=== PATIENT | female | born 1985 | race Caucasian/White ===

== ENCOUNTER 2025-07-08 04:57 | Emergency (ER) | payer SELFPAY ==
[2025-07-08] VITALS (8 sets, daily range): BP systolic 123–141; BP diastolic 74–95; BMI 25.0
[2025-07-08] MEDS: ATIVAN 1 MG IV (05:12)
--- NOTE | 2025-07-08 05:20 | ED.GENMED ---
History of Present Illness
<Lizette Brooks PA-C - Last Filed: 07/08/25 07:58>
General
Chief Complaint: Fainting Sensation
Source: patient
Exam Limitations: none
Time Seen by Provider: 07/08/25 05:07
Nursing documentation reviewed up to this point in time: agreed with
History of Present Illness
History of Present Illness:
40-year-old male to female transgender patient with no reported past medical history presents to the ER today with concerns of a potential syncopal episode. 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
up and collapsed to the ground. She reports that prior to the fall, she felt dizzy and suddenly collapsed. She subsequently called EMS. Of note, she has been having generalized URI symptoms for the past few days as noted frontal headache for the
past few days. She has not had any vomiting. No nausea. She reports that she has been taking NyQuil for the headaches and URI symptoms. She reports that she took a dose of NyQuil before bed this evening. She denies chest pain or shortness of
breath. She has never had a syncopal episode before.
Review of Systems
<Lizette Brooks PA-C - Last Filed: 07/08/25 07:58>
Review of Systems
All Other Systems: ROS reviewed and negative except as documented in HPI and ROS
Phy Exam
<Lizette Brooks PA-C - Last Filed: 07/08/25 07:58>
Physical Exam
Physical Exam:
General: Patient is well appearing and in no acute distress; non-toxic
Skin: Warm and dry, no rashes or lesions
Head: Normocephalic, atraumatic
Eyes: Sclera non-icteric. EOMs intact.
Cardiac: Regular rate and rhythm, no murmur
Pulm: Normal respiratory effort, no wheezes, rales, or rhonchi
Abdomen: No abdominal tenderness to palpation
Neuro: CN II-XII intact, no focal neurologic deficits.
Later in the ER, patient developed tonic clonic seizure
Repeat neuroexam at 7:14 AM revealed NIH of
Psychiatric: Appropriate mood and affect.
NIH Stroke Score
Level of Consciousness: 0 - Alert
LOC questions: 0-Answers both correctly
LOC Commands: 0-Performs both correctly
Best Gaze: 0-Normal
Visual Palumbo: 0=Normal, no visual loss
Facial palsy: 0=Normal, symmetrical
Motor - Right Arm: 2=Partial vs. gravity
Motor - Left Arm: 0=No drift 10 seconds
Motor - Right Le-None vs. gravity
Motor - Left Le-No drift 5 seconds
Limb Ataxia: 0-Absent
Sensation: 0-Normal
Best Language: 0-No aphasia
Dysarthria: 0-Normal
Extinction and Inattention: 0-No abnormality
Total Score:: 5
Scores
<Lizette Brooks PA-C - Last Filed: 07/08/25 07:58>
NIH Stroke Score
Level of Consciousness: 0 - Alert
LOC Questions: 0-Answers both correctly
LOC Commands: 0-Performs both correctly
Best Horizontal Gaze: 0-Normal
Visual Palumbo: 0=Normal, no visual loss
Facial Palsy: 0=Normal, symmetrical
Motor - Right Arm: 2=Partial vs. gravity
Motor - Left Arm: 0=No drift 10 seconds
Motor - Right Le-None vs. gravity
Motor - Left Le-No drift 5 seconds
Limb Ataxia: 0-Absent
Sensation: 0-Normal
Best Language: 0-No aphasia
Dysarthria: 0-Normal
Extinction and Inattention: 0-No abnormality
NIH Total Score:: 5
Course
<Lizette Brooks PA-C - Last Filed: 07/08/25 07:58>
Orders/Labs/Results
Orders:
Orders
07/08/25 05:08
Electrocardiogram (*1) Urgent
Reason for Study: Other
Other Reason for Exam: syncope
EKG- Treatment ONCE
Lorazepam [Ativan] 2 mg IV NOW STA
07/08/25 05:14
Add On- LAB Urgent
Tests Added?: cpk
07/08/25 05:20
Acetaminophen Urgent
Comment: ADD ON
Alcohol Urgent
B-Hydroxybutyrate Urgent
COVID-19 Antigen Urgent
Source: Nasal Swab
Complete Blood Count/With Diff Urgent
Comprehensive Metabolic Panel Urgent
Creatine Phosphokinase Urgent
Salicylate Urgent
Comment: ADD ON
Influenza A+B Rapid Molecular Urgent
[facility] Source: Nasal Swab
Specimen Description:
07/08/25 05:28
Add On- LAB Urgent
Tests Added?: tylenol, salicyllate
07/08/25 05:31
Lactic Acid Urgent
Venous Blood Gas Urgent
%Oxygen/Room Air: 98
0.9% Sodium Chloride 1000 ml [Nss] 2,000 ml IV BOLUS
07/08/25 05:57
CT Head W/wo Iv Contrast Urgent
Reason For Exam: new seizure, possible head trauma
07/08/25 06:03
Urinalysis Reflex To Culture Urgent
Date Specimen was Collected: 07/08/25
Time Specimen was Collected: 05:25
Urine Drug Abuse Screen Urgent
Date Specimen was Collected: 07/08/25
Time Specimen was Collected: 05:25
Urine Microscopic Reflex Cult Urgent
Lorazepam [Ativan] 2 mg .ROUTE .STK-MED ONE
07/08/25 06:12
Levetiracetam Injectable [Keppra] 2,000 mg IV NOW STA
07/08/25 06:24
CR Chest Portable - 1 View Urgent
Comment:
Reason For Exam: SOB
Reason Study Needs to be Portable: Patient Unstable
07/08/25 06:46
Basic Metabolic Panel Urgent
pH - Venous Urgent
Abnormal Lab Results
07/08/25 07/08/25 07/08/25
05:18 05:20 05:31
WBC 15.9 H 10^3/uL
(4.8-10.8)
Hct 47.6 H %
(37.0-47.0)
MCHC 32.8 L g/dL
(33.0-37.0)
Abs Immat Gran (auto) 0.1 H 10^3/uL
(0-0.05)
Absolute Neuts (auto) 9.3 H 10^3/uL
(1.4-6.5)
Absolute Lymphs (auto) 5.3 H 10^3/uL
(1.2-3.4)
Absolute Monos (auto) 1.0 H 10^3/uL
(0.1-0.6)
Immature Gran % 0.7 H %
(0-0.5)
VBG pH 6.97 L*
(7.32-7.43)
VBG pO2 78 H mmHg
(30-50)
VBG HCO3 8.3 L mmol/L
(22-27)
Sodium
Carbon Dioxide 21 L mmol/L
(22-30)
Glucose 325 H mg/dl
(70-99)
Lactic Acid 21.6 H* mmol/L
(0.7-2.0)
Calcium
Total Protein 8.5 H g/dl
(6.3-8.2)
Urine Ketones
Ur Occult Blood Reflex
Urine Glucose
Urine Albumin (Reflex)
Salicylates < 1.0 L mg/dl
(2.0-20.0)
Acetaminophen < 10 L ug/ml
(10-30)
POC Glucose 322 H mg/dl
(70-99)
07/08/25 07/08/25
06:03 06:46
WBC
Hct
MCHC
Abs Immat Gran (auto)
Absolute Neuts (auto)
Absolute Lymphs (auto)
Absolute Monos (auto)
Immature Gran %
VBG pH
VBG pO2
VBG HCO3
Sodium 133 L mmol/L
(135-145)
Carbon Dioxide 16 L mmol/L
(22-30)
Glucose 329 H mg/dl
(70-99)
Lactic Acid
Calcium 7.8 L D mg/dl
(8.4-10.2)
Total Protein
Urine Ketones 1+ A
(Negative)
Ur Occult Blood Reflex 2+ A
(Negative)
Urine Glucose 4+ A
(Negative)
Urine Albumin (Reflex) 2+ A
(Neg - Trace)
Salicylates
Acetaminophen
POC Glucose
07/08/25 05:20
07/08/25 06:46
Vital Signs
Initial and Last Documented VS:
Initial Vital Signs
Temp Pulse Resp BP Pulse Ox
98.0 F 94 15 133/89 100
07/08/25 04:59 07/08/25 04:59 07/08/25 04:59 07/08/25 04:59 07/08/25 04:59
Last Documented Vital Signs
Temp Pulse Resp BP Pulse Ox
98.0 F 103 20 134/93 98
07/08/25 04:59 07/08/25 06:30 07/08/25 06:30 07/08/25 06:12 07/08/25 06:30
<Paola Santos, DO - Last Filed: 07/08/25 06:43>
Orders/Labs/Results
Orders:
Orders
07/08/25 05:08
Electrocardiogram (*1) Urgent
Reason for Study: Other
Other Reason for Exam: syncope
EKG- Treatment ONCE
Lorazepam [Ativan] 2 mg IV NOW STA
07/08/25 05:14
Add On- LAB Urgent
Tests Added?: cpk
07/08/25 05:20
Acetaminophen Urgent
Comment: ADD ON
Alcohol Urgent
B-Hydroxybutyrate Urgent
COVID-19 Antigen Urgent
Source: Nasal Swab
Complete Blood Count/With Diff Urgent
Comprehensive Metabolic Panel Urgent
Creatine Phosphokinase Urgent
Salicylate Urgent
Comment: ADD ON
Influenza A+B Rapid Molecular Urgent
MEGH[facility] Source: Nasal Swab
Specimen Description:
07/08/25 05:28
Add On- LAB Urgent
Tests Added?: tylenol, salicyllate
07/08/25 05:31
Lactic Acid Urgent
Venous Blood Gas Urgent
%Oxygen/Room Air: 98
0.9% Sodium Chloride 1000 ml [Nss] 2,000 ml IV BOLUS
07/08/25 05:57
CT Head W/wo Iv Contrast Urgent
Reason For Exam: new seizure, possible head trauma
07/08/25 06:03
Urinalysis Reflex To Culture Urgent
Date Specimen was Collected: 07/08/25
Time Specimen was Collected: 05:25
Urine Drug Abuse Screen Urgent
Date Specimen was Collected: 07/08/25
Time Specimen was Collected: 05:25
Urine Microscopic Reflex Cult Urgent
Lorazepam [Ativan] 2 mg .ROUTE .STK-MED ONE
07/08/25 06:12
Levetiracetam Injectable [Keppra] 2,000 mg IV NOW STA
07/08/25 06:24
CR Chest Portable - 1 View Urgent
Comment:
Reason For Exam: SOB
Reason Study Needs to be Portable: Patient Unstable
07/08/25 06:46
Basic Metabolic Panel Urgent
pH - Venous Urgent
Abnormal Lab Results
07/08/25 07/08/25 07/08/25
05:18 05:20 05:31
WBC 15.9 H 10^3/uL
(4.8-10.8)
Hct 47.6 H %
(37.0-47.0)
MCHC 32.8 L g/dL
(33.0-37.0)
Abs Immat Gran (auto) 0.1 H 10^3/uL
(0-0.05)
Absolute Neuts (auto) 9.3 H 10^3/uL
(1.4-6.5)
Absolute Lymphs (auto) 5.3 H 10^3/uL
(1.2-3.4)
Absolute Monos (auto) 1.0 H 10^3/uL
(0.1-0.6)
Immature Gran % 0.7 H %
(0-0.5)
VBG pH 6.97 L*
(7.32-7.43)
VBG pO2 78 H mmHg
(30-50)
VBG HCO3 8.3 L mmol/L
(22-27)
Sodium
Carbon Dioxide 21 L mmol/L
(22-30)
Glucose 325 H mg/dl
(70-99)
Lactic Acid 21.6 H* mmol/L
(0.7-2.0)
Calcium
Total Protein 8.5 H g/dl
(6.3-8.2)
Urine Ketones
Ur Occult Blood Reflex
Urine Glucose
Urine Albumin (Reflex)
Salicylates < 1.0 L mg/dl
(2.0-20.0)
Acetaminophen < 10 L ug/ml
(10-30)
POC Glucose 322 H mg/dl
(70-99)
07/08/25 07/08/25
06:03 06:46
WBC
Hct
MCHC
Abs Immat Gran (auto)
Absolute Neuts (auto)
Absolute Lymphs (auto)
Absolute Monos (auto)
Immature Gran %
VBG pH
VBG pO2
VBG HCO3
Sodium 133 L mmol/L
(135-145)
Carbon Dioxide 16 L mmol/L
(22-30)
Glucose 329 H mg/dl
(70-99)
Lactic Acid
Calcium 7.8 L D mg/dl
(8.4-10.2)
Total Protein
Urine Ketones 1+ A
(Negative)
Ur Occult Blood Reflex 2+ A
(Negative)
Urine Glucose 4+ A
(Negative)
Urine Albumin (Reflex) 2+ A
(Neg - Trace)
Salicylates
Acetaminophen
POC Glucose
07/08/25 05:20
07/08/25 06:46
Vital Signs
Initial and Last Documented VS:
Initial Vital Signs
Temp Pulse Resp BP Pulse Ox
98.0 F 94 15 133/89 100
07/08/25 04:59 07/08/25 04:59 07/08/25 04:59 07/08/25 04:59 07/08/25 04:59
Last Documented Vital Signs
Temp Pulse Resp BP Pulse Ox
98.0 F 103 20 134/93 98
07/08/25 04:59 07/08/25 06:30 07/08/25 06:30 07/08/25 06:12 07/08/25 06:30
<Lizette Brooks PA-C - Last Filed: 07/08/25 07:58>
MDM/Problems Addressed
Differential Diagnosis Includes:
Differentials include epilepsy, toxic ingestion, meningitis, brain tumor, infectious encephalitis, etc
MDM/Problems Addressed:
40-year-old male to female transgender patient with no reported past medical history presents to the ER today with concerns of a potential syncopal episode.
Shortly into evaluation, patient had a grand mal seizure
Patient was found to have focal area of blood products involving my high left posterior frontal lobe suspicious for hemorrhagic venous infarct given the hyperdense superior sagittal sinus and right transverse and sigmoid sinuses suspicious for
venous sinus thrombosis
Patient will require transfer to [facility]
Chronic conditions affecting care:
n/a
<Lizette Brooks PA-C - Last Filed: 07/08/25 07:58>
*Pulse Oximetry
SaO2: 98
Oxygen Mode of Delivery: Room air
Patient hypoxic: no
Data Reviewed
Review of Other/Old Records Reveals: Records (No past ER physician documentation to review) and Discharge Summary (no discharge summary to review )
Source: patient and records
<Paola Santos DO - Last Filed: 07/08/25 06:43>
*Critical Care Note
Total Time (30-74mins, 75-104mins- exclusive of procedures): 90
comment:
Critical care statement: A total of 90 minutes of critical care time was provided for this patient. This includes management of unstable vital signs, evaluation of the patient at bedside, reviewing the patient's pertinent medical records, discussion
with consultants, review of old EKGs and review of pertinent medical records. This time with separate from time utilized to perform the aforementioned documented procedures
<Lizette Brooks PA-C - Last Filed: 07/08/25 07:58>
Update Note
Update Note:
5:08 AM patient started to have tonic-clonic seizure, Ativan was ordered, seizure lasted 2 minutes, ED attending notified
Blood sugar 322, will hold off on Keppra at this time, possible DKA
I spoke to patient's to update on case who is en route
7:13 AM�patient developed some right sided weakness ED attending aware and at bedside, NIH would be 5 at this point for right leg none against gravity and partial motor paralysis of right upper arm
Unclear time of onset of this deficit
[facility] stroke fellow updated on this deficit, patient now going to [facility] under Dr. Yates will fly via [facility]
ED Attending Note
<Lizette Brooks PA-C - Last Filed: 07/08/25 07:58>
-
Portions of this chart may have been created with voice recognition software.� Occasional wrong word or��sound alike� substitutions may have occurred due to the inherent limitations of voice recognition software.
<Paola Santos DO - Last Filed: 07/08/25 06:43>
ED Attending Note
Patient seen and examined by attending physician: Yes
I performed the substantive portion of visit, reviewed & personally made and approve the management plan that is documented in note by myself or PARKER.: Yes
ED Attending Note:
40-year-old transgender female presents via EMS after suffering a syncopal episode this morning. Denies prodrome of lightheadedness but admits to generalized headache over the past several days and overall not feeling well.
Takes no medicines on a daily basis.
Status post breast implants. Has not completed full transgender surgery.
Reports no significant past medical history.
Shortly after arrival to the ED, patient suffered a grand mal seizure lasting 2 minutes.
Moderately drowsy postictal.
HEENT: The head is normocephalic, atraumatic. No evidence of tongue abrasion. Oral mucosa, lips and tongue significantly dry. There is no rhinorrhea. TMs are clear bilaterally.
Neck: Supple. No adenopathy.
Heart is regular rhythm, mildly tachycardic. No murmur nor rub.
Lungs: Mild resting tachypnea, mildly Kussmal in nature. Lungs are otherwise clear to auscultation.
Abdomen is soft without appreciable tenderness.
Extremities: There is a 1 cm superficial abrasion right anterior knee. No joint effusion nor ecchymosis. Peripheral pulses are full and equal bilaterally.
Neuro: Drowsy, postictal. Nonfocal.
Accu-Chek shortly after seizure is elevated at 322.
Concern for DKA or other metabolic abnormality, acute kidney injury, sepsis.
Concern for head injury,/closed head injury, intracerebral tumor, new onset seizure disorder, meningitis, toxic ingestion.
Patient given 1 mg of IV Ativan but seizure had already dissipated prior to Ativan administration.
Remains hemodynamically stable. Afebrile.
Will initiate IV fluid bolus, 2 L normal saline solution. Labs are pending. Will plan for CT of the head, chest x-ray.
06:40
Patient is now awake, mildly drowsy but communicative. Continues with moderate headache. No neck pain.
Labs are remarkable for significant acidosis on venous blood gas with pH of 6.97, bicarb low at 8.3 with normal pCO2 of 36.
Elevated glucose at 325 but normal electrolytes otherwise. No metabolic acidosis on electrolytes.
CPK is normal.
Beta hydroxybutyrate is negative. DKA is thus unlikely with negative acetone.
Salicylate and acetaminophen are negative. Alcohol is negative.
Lactic acid significantly elevated at 21.6. This could possibly be related to recent seizure.
CT shows acute intracerebral hemorrhage high left posterior frontal lobe. There is concern for hemorrhagic venous infarct/venous thrombosis versus underlying mass lesion. Consider venogram CT of the head.
Due to seizure patient will be started on IV Keppra load.
Will plan to repeat BMP, venous pH and due to intracerebral bleeding, concern for venous thrombosis versus underlying mass lesion, will consult [facility] transfer/neurology versus neurosurgery.
Discharge Plan
Departure
Patient Disposition: Acute Care Hospital
Date of Disposition: 07/08/25
Time of Disposition: 07:52
Admit to doctor: Dr. Jolley
Condition: Fair
Discharge Problem:
Intracerebral hemorrhage, New onset seizure
Referrals:
NONE,* [Family Provider, Internal Medicine]
Hospital Transfer
Other hospital: [facility]
I certify that the patient requires transfer: Yes
Discussed case with accepting physician: Dr. Jolley
Reason for transfer: higher level of care
Interventions
Interventions:
*Risk Screen - Suicide Last Done: 07/08/25 05:07
*General Assessment Last Done: 07/08/25 05:07
*Neglect/Abuse Screening Last Done: 07/08/25 05:07
*ED- Fall Risk Assessment Last Done: 07/08/25 05:07
*ED COVID-19 Vaccine History Last Done: 07/08/25 05:07
*ED Influenza Vaccine History Last Done: 07/08/25 05:07
ED- Cardiac Assessment Last Done: 07/08/25 05:16
ED- Neurological Assessment Last Done: 07/08/25 07:15
Discharge Date and Time
Print Language: MALTESE
[2025-07-08 05:21] LABS: Glucose - Point of Care 322 mg/dl (70-99)
[2025-07-08] MEDS: NSS 2000 IV (05:31)
[2025-07-08 05:37] LABS: Hematocrit 47.6 % (37.0-47.0); Hemoglobin 15.6 g/dL (12.0-16.0); Mean Corp Hgb Conc. 32.8 g/dL (33.0-37.0); Mean Corpuscular Volume 89.5 fL (81.0-99.0); Nucleated Red Blood Cells % 0 %; Platelet Count 277 10^3/uL (130-400); Red Cell Dist. Width 12.7 % (11.5-14.5)
[2025-07-08 05:42] LABS: Venous Blood Gas B.E. -23.0 mmol/L (-4 to +4); Venous Blood Gas O2 Sat % 92.8 %
[2025-07-08 05:43] LABS: Venous Blood Gas O2 Therapy 98
[2025-07-08 05:48] LABS: COVID-19 Antigen Negative (Negative)
[2025-07-08 05:51] LABS: ALT (SGPT) 28 U/L (0-35); AST (SGOT) 21 U/L (14-36); Acetaminophen < 10 ug/ml (10-30); Albumin 4.9 g/dl (3.5-5.0); Alkaline Phosphatase 84 U/L (38-126); Blood Urea Nitrogen 8 mg/dl (7-17); Calcium 9.4 mg/dl (8.4-10.2); Carbon Dioxide 21 mmol/L (22-30); Chloride 99 mmol/L (98-107); Estimated Creatinine Clearance 79 ml/min; Glucose 325 mg/dl (70-99); Potassium 3.9 mmol/L (3.5-5.1); Salicylate < 1.0 mg/dl (2.0-20.0); Sodium 136 mmol/L (135-145); Total Protein 8.5 g/dl (6.3-8.2); eGFR > 60.00
[2025-07-08 06:18] LABS: Urine Character Clear (Clear)
[2025-07-08] MEDS: KEPPRA 2000 MG IV (06:26)
[2025-07-08 06:30] LABS: Urine Squamous Cell 0-2 /LPF (Few)
[2025-07-08 06:31] LABS: Urine Red Blood Cell 0-2 /HPF (0-2); Urine White Cell 0-2 /HPF (0-5)
[2025-07-08 06:52] LABS: pH - Venous 7.23 (7.32-7.43)
[2025-07-08 07:27] LABS: Blood Urea Nitrogen 8 mg/dl (7-17); Calcium 7.8 mg/dl (8.4-10.2); Carbon Dioxide 16 mmol/L (22-30); Chloride 105 mmol/L (98-107); Estimated Creatinine Clearance 79 ml/min; Glucose 329 mg/dl (70-99); Potassium 4.3 mmol/L (3.5-5.1); Sodium 133 mmol/L (135-145); eGFR > 60.00
== END 2025-07-08 08:31 | disposition short-term general hospital (02) ==
LOC: EMR 04:57
PROVIDERS: Physician Assistant; EMERGENCY PHYSICIAN Emergency Medicine
DX: I61.1 Nontraumatic intracerebral hemorrhage in hemisphere, cortical (principal); G81.91 Hemiplegia, unspecified affecting right dominant side; R29.705 NIHSS score 5; G40.409 Other generalized epilepsy and epileptic syndromes, not intractable, without status epilepticus; F64.0 Transsexualism
CPT/HCPCS: 99291; 99292; 96374; 96375; 96361; 70470; 71045; 80048; 80053; 80143; 80179; 80306; 81003; 81015; 82010; 82077; 82550; 82800; 82805; 82962; 83605; 85025; 87502; 87811; 93005; Q9967